=== PATIENT | male | born 1970 | race Caucasian/White ===

== ENCOUNTER 2017-06-12 19:02 | Emergency (ER) | payer BC ==
[2017-06-12] MEDS: ONDANSETRON PF 4 MG/2 ML VIAL. IV (19:47)
[2017-06-12] MEDS: MORPHINE SULFATE 4 MG/ML DISP.SYRIN. IV ×3 (19:47→21:54)
== END 2017-06-12 22:48 | disposition home or self-care (01) ==
LOC: ER 19:02
DX: S82.851A Displaced trimalleolar fracture of right lower leg, initial encounter for closed fracture (principal); I10 Essential (primary) hypertension; V00.131A Fall from skateboard, initial encounter; Y93.51 Activity, roller skating (inline) and skateboarding; Y92.89 Other specified places as the place of occurrence of the external cause; Y99.8 Other external cause status
CPT/HCPCS: 27818; 73590; 73600; 73610; 73700; 96374; 96375; 96376; 99284-25; J2270; J2405